=== PATIENT | female | born 1950 | race Caucasian/White ===

== ENCOUNTER → 2022-11-25 | Outpatient (CLI) | payer MEDICARE, OTHER | LOC: CARD 10:33 | PROVIDERS: ATTEND Registered Nurse Emergency | DX: Z00.01 Encounter for general adult medical examination with abnormal findings (principal); I11.9 Hypertensive heart disease without heart failure; I35.0 Nonrheumatic aortic (valve) stenosis; E78.2 Mixed hyperlipidemia; E11.9 Type 2 diabetes mellitus without complications; E55.9 Vitamin D deficiency, unspecified; R53.83 Other fatigue | CPT/HCPCS: 93306 ==